=== PATIENT | female | born 1955 | race African-American/Black ===

== ENCOUNTER 2017-03-08 14:34 | Emergency (ER) | payer OTHER ==
[~2017-03-08] VITALS: Ht 160 cm; Wt 49.1 kg
[2017-03-08 15:33] VITALS: BP 142/98
[2017-03-08] MEDS ORDERED: DEXAMETHASONE SOD PHOS 4 MG/ML VIAL IM ONE (15:45)
== END 2017-03-08 16:57 | disposition home or self-care (01) ==
LOC: EMS 14:35
DX: L23.9 Allergic contact dermatitis, unspecified cause (principal); L50.9 Urticaria, unspecified
CPT/HCPCS: 96372; 99283; J1100

== ENCOUNTER 2017-03-16 10:18 | Emergency (ER) | payer OTHER ==
[~2017-03-16] VITALS: Ht 160 cm; Wt 49.1 kg
[2017-03-16] MEDS ORDERED: DiphenhydrAMINE HCL 25 MG CAPSULE PO ONE (12:15)
[2017-03-16] MEDS ORDERED: PredniSONE 20 MG TABLET PO ONE (12:15)
[2017-03-16 13:30] VITALS: BP 151/95
== END 2017-03-16 13:37 | disposition home or self-care (01) ==
LOC: EMS 10:27
DX: T78.40XA Allergy, unspecified, initial encounter (principal); R21 Rash and other nonspecific skin eruption; X58.XXXA Exposure to other specified factors, initial encounter
CPT/HCPCS: 99283; J7512

== ENCOUNTER 2019-07-26 11:15 | Emergency (ER) | payer MEDICAID, OTHER ==
[~2019-07-26] VITALS: Ht 162.6 cm; Wt 56.8 kg
[2019-07-26] MEDS ORDERED: KETOROLAC TROMETHAMINE 30 MG/ML VIAL IM ONE (12:30)
[2019-07-26 13:13] VITALS: BP 147/78
== END 2019-07-26 13:21 | disposition home or self-care (01) ==
LOC: EMS 11:17
DX: S29.012A Strain of muscle and tendon of back wall of thorax, initial encounter (principal); M54.2 Cervicalgia; F12.90 Cannabis use, unspecified, uncomplicated; Z85.3 Personal history of malignant neoplasm of breast; Z90.11 Acquired absence of right breast and nipple; X50.0XXA Overexertion from strenuous movement or load, initial encounter; Y93.89 Activity, other specified; Y92.89 Other specified places as the place of occurrence of the external cause; Y99.0 Civilian activity done for income or pay
CPT/HCPCS: 96372; 99283; J1885

== ENCOUNTER 2019-07-29 13:20 | Emergency (ER) | payer MEDICAID ==
[~2019-07-29] VITALS: Ht 157.5 cm; Wt 56.8 kg
[2019-07-29] MEDS ORDERED: METHOCARBAMOL 500 MG TABLET PO ONE (15:30)
[2019-07-29] MEDS ORDERED: KETOROLAC TROMETHAMINE 10 MG TABLET PO ONE (15:30)
[2019-07-29 15:54] VITALS: BP 151/78
== END 2019-07-29 16:11 | disposition home or self-care (01) ==
LOC: EMS 13:21
DX: S46.911A Strain of unspecified muscle, fascia and tendon at shoulder and upper arm level, right arm, initial encounter (principal); S16.1XXA Strain of muscle, fascia and tendon at neck level, initial encounter; I10 Essential (primary) hypertension; F12.90 Cannabis use, unspecified, uncomplicated; Z85.3 Personal history of malignant neoplasm of breast; X58.XXXA Exposure to other specified factors, initial encounter; Y93.89 Activity, other specified; Y92.89 Other specified places as the place of occurrence of the external cause; Y99.8 Other external cause status